=== PATIENT | male | born 1950 | race Asian ===

== ENCOUNTER 2019-05-13 04:09 | Inpatient (IN) | payer OTHER ==
[~2019-05-13] VITALS: Ht 167.6 cm; Wt 74.4 kg
[~2019-05-13 04:09] MED LIST: CLINDAMYCI300 MG/50 IV; LEVAQUIN750 MG/150 IV; LIPI10 PO; METOPROLOL TART25 M1 PO; MIRTAZAPINE15 M2 PO; PHOSLO667 MG PO; PRO10I SQ; STOOL SOFTENER100 MG PO
[2019-05-13 04:12] VITALS: Ht 167.6 cm; Wt 74.4 kg
--- NOTE | 2019-05-13 04:12 | NUR ---
PT PRESENTED TO ED VIA [facility] FOR C/O OF SOB. PER FRESH FOODS TECHNICIAN PT WALKED INTO THE LOBBY OF HIS DIALYSIS CLINICAL FEELING SOB AND CALLED 911. PT NOTED WITH LABORED BREATHING AND USE OF ACCESSORY MUSCLES. BILATERAL WHEEZE NOTED TO LUNGS UPON ASCULTATION. PT STATES DRY COUGH X 3 WEEKS. PT REPORTS HX OF COPD. UPON ARRIVAL TO ED PT ON ALBUTEROL 2.5 MG AND ATROVENT 0.5 MG BREATHING TREATMENT AT 8 L VIA MASK AND NOTED SATING AT 97%. WHEN PT PLACED ON FULL CM AND 02 MONITOR PT NOTED SATING AT 91%. PT NOTED TACHYCARDIC ON CM WITH PACED SPIKES. MSE COMPLETED BY MD RODGERS. PT AWAKE AND ALERT AND ABLE TO ANSWER QUESTIONS IN 2-3 WORD SENTENCES. PT REPORTS GETTING DIALYSIS MONDAY, MONDAY, MONDAY, AND DENIES MISSING ANY APPOINTMENTS OTHER THAN TODAY. WILL CONTINUE TO MONITOR.
--- NOTE | 2019-05-13 04:15 | NUR ---
PT MEETS SIRS CRITERIA WITH ELEVATED RESP RATE AND ELEVATED HR. MD RODGERS MADE AWARE.
--- NOTE | 2019-05-13 04:20 | NUR ---
BREATHING TREATMENT IN PROGRESS BY RT
--- NOTE | 2019-05-13 04:23 | NUR ---
XRAY COMPLETED IN ROOM ORTHO AT THIS TIME.
--- NOTE | 2019-05-13 04:30 | NUR ---
PT PLACED ON 3 L VIA NC AFTER BREATHING TREATMENT BY RT MADISON AND NOTED SATING BETWEEN 88-91%. PT REMAINS ON FULL CM AND 02 MONITOR. WILL CONTINUE TO MONITOR.
[2019-05-13 04:44] LABS: PLATELET COUNT 250 x10^3mcL (130-400)
--- NOTE | 2019-05-13 04:50 | NUR ---
PT NOTED COUGHING BUT WITH LESS LABORED BREATHING. PT ABLE TO ANSWER QUESTIONS IN 3-4 WORD SENTENCES. FULL CM AND [address] PT REMAINS ON 3 L VIA NC AT SATING AT 92-94% AFTER SECOND BREATHING TREATMENT.
[2019-05-13 04:54] LABS: RED CELL DISTRIBUTION WIDTH 14.9 % (11.5-14.5)
[2019-05-13 04:59] LABS: CHLORIDE SERUM 99 mmol/L (98-107); POTASSIUM SERUM 5.5 mmol/L (3.5-5.1); SODIUM SERUM 143 mmol/L (136-145)
[2019-05-13 05:00] LABS: CARBON DIOXIDE 24.1 mmol/L (21-32); GLUCOSE SERUM 197 mg/dL (74-106)
[2019-05-13 05:04] LABS: CALCIUM 8.3 mg/dL (8.5-10.1); TOTAL PROTEIN, SERUM 7.1 g/dL (6.4-8.2)
[2019-05-13 05:05] LABS: ALKALINE PHOSPHATASE 169 U/L (46-116); ALT/SGPT 38 U/L (16-63); AST/SGOT 28 U/L (15-37); BILIRUBIN TOTAL 0.78 mg/dL (0.20-1.00)
[2019-05-13 05:06] LABS: CREATININE SERUM 14.8 mg/dL (0.7-1.3)
[2019-05-13 05:12] LABS: BAND NEUTROPHIL 2 % (0-10); MONOCYTE 5 % (0-7); SEGMENTED NEUTROPHILS 58 % (37-75)
[2019-05-13 05:13] LABS: PLATELET MORPHOLOGY PLATELETS NORMAL; rbc morphology (normal/abnorm) NORMAL (NORMAL)
--- NOTE | 2019-05-13 05:39 | NUR ---
PT REMAINS ON FULL CM AND O2 MONITOR. PT REMAINS ON 3L VIA NC AND NOTED SATING AT 92-94% AFTER SECOND BREATHING TREATMENT. PT STILL NOTED COUGHING WITH APPARENT SOB BUT APPEARS LESS ACCESSORY MUSCLE USE AND ABLE TO ANSWER QUESTIONS WITH 3-4 WORD SENTENCES. AT BEDSIDE. WILL CONTINUE TO MONITOR.
[2019-05-13] MEDS ORDERED: ASPIR 8181 MG PO (06:00)
[2019-05-13] MEDS ORDERED: SENSIPAR30 M1 PO (06:00)
[2019-05-13] MEDS ORDERED: NORCO1 TA2 PO (06:00)
[2019-05-13] MEDS ORDERED: CARVEDILOL ER40 MG PO (06:01)
[2019-05-13] MEDS ORDERED: MITIGARE0.6 MG PO (06:03)
[2019-05-13] MEDS ORDERED: RENA-VITE RX1 TAB PO (06:03)
[2019-05-13] MEDS ORDERED: PACERONE200 MG PO (06:03)
[2019-05-13] MEDS ORDERED: PLAVIX75 M1 PO (06:03)
[2019-05-13] MEDS ORDERED: LANTI SQ (06:03)
[2019-05-13] MEDS ORDERED: COZAAR25 M1 PO (06:04)
[2019-05-13] MEDS ORDERED: ATHENOL325 MG PO (06:05)
[2019-05-13] MEDS ORDERED: DEXTROSE 50% IV (06:06)
[2019-05-13] MEDS ORDERED: CLONIDINE HYDR0.1 M1 PO (06:06)
[2019-05-13] MEDS ORDERED: [UNRECOGNIZED DRUG - OTHER] IV (06:06)
--- NOTE | 2019-05-13 06:30 | NUR ---
PT NOTED RESTING ON GURNEY WITH EYES CLOSED, EASILY AROUSABLE. FULL CM AND [address] IV INTACT AND FLUSHES WITH NO COMPLICATIONS. IV FLUID RUNNING AT ORDERED RATE. PT AT BEDSIDE. WILL CONTINUE TO MONITOR.
--- NOTE | 2019-05-13 07:14 | NUR ---
ATTEMPTED TO GIVE REPORT TO NELLIE YU, UNABLE TO GIVE REPORT AT THIS TIME. RICHARDSON LE RN MADE AWARE.
--- NOTE | 2019-05-13 07:31 | NUR ---
REPORT GIVEN TO NELLIE YU
--- NOTE | 2019-05-13 07:40 | NUR ---
RECEIVED PT FROM ER WITH DIAGNOSIS OF RESP FAILURE, FLUID OVERLOAD HYPERKALEMIA (5.5). ALERT AND ORIENTED. CONGESTED LUNG SOUNDS ON NC 3L. SOB X 1 DAY. HX HD M W FR., COPD,CABG,CARDAIC STENTS. PACEMAKER, DIFIBRILATOR, DM. GOUT.ALERT AND ORIENTED X 4 ALLERGIES TO MORPHINE AND PCN. BASELINE INDEPENDENT W ADL'S. NO ASSISTIVE DEVICES AT HOME. FREQUENT PRODUCTIVE COUGH, YELLOWISH PHLEGM. ORIENTED TO ROOM AND DEVICES. FAUSTO AT BEDSIDE.
[2019-05-13 08:12] VITALS: BP 119/58
[2019-05-13] MEDS ORDERED: REN800 PO (10:13)
[2019-05-13] MEDS ORDERED: NASAL MIST126 ML (10:20)
[2019-05-13] MEDS ORDERED: COLCRYS0.6 M2 PO (10:20)
[2019-05-13 10:26] VITALS: BP 122/61
[2019-05-13 11:44] LABS: CARBON DIOXIDE 22.8 mmol/L (21-32); CHLORIDE SERUM 99 mmol/L (98-107); GLUCOSE SERUM 198 mg/dL (74-106); POTASSIUM SERUM 5.3 mmol/L (3.5-5.1); SODIUM SERUM 142 mmol/L (136-145)
[2019-05-13 11:45] LABS: CREATININE SERUM 15.2 mg/dL (0.7-1.3); TOTAL PROTEIN, SERUM 7.6 g/dL (6.4-8.2)
[2019-05-13 11:46] LABS: ALBUMIN 3.1 g/dL (3.4-5.0); ALKALINE PHOSPHATASE 163 U/L (46-116); ALT/SGPT 38 U/L (16-63); AST/SGOT 30 U/L (15-37); BILIRUBIN TOTAL 0.71 mg/dL (0.20-1.00); CALCIUM 8.3 mg/dL (8.5-10.1)
[2019-05-13 12:33] VITALS: BP 122/58
--- NOTE | 2019-05-13 12:48 | NUR ---
HD RN HERE PERFORMING HEMODIALYSIS. HAS BEEN HERE SINCE APPROX 1030.
--- NOTE | 2019-05-13 13:31 | NUR ---
DIALYSIS COMPLETED. 3600 ML OUT. TOLERATED WELL. SITTING UP FOR LUNCH.
[2019-05-13 14:24] LABS: CARBON DIOXIDE 28.6 mmol/L (21-32); POTASSIUM SERUM 4.2 mmol/L (3.5-5.1)
[2019-05-13 14:26] LABS: CREATININE SERUM 8.6 mg/dL (0.7-1.3); TOTAL PROTEIN, SERUM 8.7 g/dL (6.4-8.2)
[2019-05-13 14:27] LABS: ALBUMIN 3.3 g/dL (3.4-5.0); BILIRUBIN TOTAL 0.97 mg/dL (0.20-1.00); CALCIUM 9.2 mg/dL (8.5-10.1)
[2019-05-13 16:40] VITALS: BP 123/53
--- NOTE | 2019-05-13 19:35 | NUR ---
RECEIVED PT FROM DAY SHIFT RN. PT AAOX4 DENIES JONES/DIZZINESS. TELE #2 SR 100% PACED. PT DENIES CHEST PAIN/PRESSURE. BREATHING EVEN AND UNLABORED ON NC 3L/MIN NO SOB NOTED. IV LH PATENT, SL. PT ON FL RESTRICTIONS. HD DONE TODAY. AV SHUNT TO SHERRY. NO ACUTE DISTRESS NOTED. FAMILY AT BEDSIDE. CALL BUTTON WITHIN REACH. SAFETY PRECAUTIONS IN PLACE. WILL CONTINUE TO MONITOR.
--- NOTE | 2019-05-13 19:41 | NUR ---
RESTING QUIETLY AND COMFORTABLY WITH AT BEDSIDE. NC 3L. RT PROTOCOL. GOOD APPETITE. URINE COLLECTED FOR UA AND URC. NO C/O PAIN. VSS. ENDORSED TO FERNANDA YU.
[2019-05-13 20:12] LABS: UA SPECIFIC GRAVITY 1.015 (1.005-1.035); microscopic required? YES; urine erythrocyte TRACE (NEGATIVE)
[2019-05-13 20:29] LABS: AMPHETAMINE QUAL UR NONE DETECTED (See below)
[2019-05-13 22:03] VITALS: BP 131/57
--- NOTE | 2019-05-14 01:12 | NUR ---
PT BREATHING EVEN AND UNLABORED. NO RESP DISTRESS NOTED. NO ACUTE DISTRESS. CALL BUTTON WITHIN REACH. SAFETY PRECAUTIONS IN PLACE. WILL CONTINUE TO MONITOR.
--- NOTE | 2019-05-14 05:04 | NUR ---
PT SLEPT MOST OF THE NIGHT WITH NO ACUTE DISTRESS. BREATHING EVEN AND UNLABORED ON NC 3L/MIN. NO SOB NOTED. IV PATENT, SL. PT ABLE TO TURN AND REPOSITONED NEEDED. MEDICATED PER EMAR. CALL BUTTON WITHIN REACH. SAFETY PRECAUTIONS IN PLACE. WILL CONTINUE TO MONITOR AND ENDORSE CARE TO DAY SHIFT RN.
[2019-05-14 05:52] VITALS: BP 120/56
[2019-05-14 06:56] LABS: PLATELET COUNT 157 x10^3mcL (130-400); RED CELL DISTRIBUTION WIDTH 14.4 % (11.5-14.5)
[2019-05-14 07:10] LABS: CALCIUM 8.6 mg/dL (8.5-10.1); CARBON DIOXIDE 27.2 mmol/L (21-32); CREATININE SERUM 11.5 mg/dL (0.7-1.3); POTASSIUM SERUM 4.9 mmol/L (3.5-5.1)
[2019-05-14 07:14] LABS: CHOLESTEROL/HDL RATIO 2.8
--- NOTE | 2019-05-14 07:25 | NUR ---
SEEN AOX4, NOT IN DISTRESS, TELE 2 SR PACED, PALPABLE PULSES, NO EDEMA, CTA ON BLF, 3LPM VIA NC, + BS, LAST BM 05/12/19, OLIGURIC, SHERRY SHUNT THRILL , GENERALIZED WEAKNESS, SKIN DRY AND INTACT, NO PAIN AT THIS TIME, IV INTACT AND PATENT, SL, TO LH. NO REDNESS OR INFILTRATION. CALL LIGHT WITHIN REACH. BED AT LOWEST POSITION.
--- NOTE | 2019-05-14 07:29 | NUR ---
PT RESTING. NO ACUTE DISTRESS NOTED. ENDORSED CARE TO DAY SHIFT RN, ALL QUESTIONS ADDRESSED.
[2019-05-14 08:52] VITALS: BP 120/51
--- NOTE | 2019-05-14 09:00 | NUR ---
SPOKE WITH WYATT SEWELL REGARDING PATIENT'S BUN CREATININE RESULT DESPITE HD TREATMENT YESTERDAY. PER DONATO , PATIENT WILL STILL BE HERE FOR TREATMENT A DAY OR 2.
--- NOTE | 2019-05-14 09:29 | NUR ---
BP 120/51. HR 90. PO MEDICATIONS GIVEN. CATAPRESS ON HOLD.
[2019-05-14 11:03] LABS: BAND NEUTROPHIL 3 % (0-10); BASOPHIL 0 % (0-2); MONOCYTE 1 % (0-7); SEGMENTED NEUTROPHILS 94 % (37-75); rbc morphology (normal/abnorm) ABNORMAL (NORMAL)
[2019-05-14 11:04] LABS: PLATELET MORPHOLOGY PLATELETS DECREASED
--- NOTE | 2019-05-14 11:50 | NUR ---
ACCUCHECK DONE MUSA ESPINOZAG 19O. REG 3 U SQ GIVEN.
--- NOTE | 2019-05-14 12:54 | NUR ---
SPOKE WITH TANKAGE SUPERVISOR REGARDING PATIENT'S DISCHARGE STATUS. PATIENT'S RECEIVED CALL FROM [facility] SENIOR SSIS DEVELOPER ROSELLE TO CHECK ON DISCHARGE STATUS OF PATIENT FOR TOMORROW. IF PATIENT STILL NOT READY FOR DISCHARGE, PATIENT WILL FOREGO RESERVATION OF HD AT [facility]AR [place]. PER TANKAGE SUPERVISOR, SHE WILL TALK TO GIGI WETZEL REGARDING STATUS OF PATIENT.
--- NOTE | 2019-05-14 13:19 | NUR ---
WYATT SEWELL MADE AWAER OF PHOSPHORUS 7.0 RESULTS AND PATIENT'S MCV/MCH , HYPERSEGMENTED PMN RESULT. PER DONATO, NEPHRO WILL HANDLE PHOSPHORUS RESULT AND PATIENT'S CBC RESULTS ARE FROM HIS CHRONIC CONDITION.
[2019-05-14 13:20] VITALS: BP 134/56
--- NOTE | 2019-05-14 13:30 | NUR ---
SOLUMEDROL IVP GIVEN AND FLUSHED WITH NS.
--- NOTE | 2019-05-14 15:21 | NUR ---
PHYSICAL THERAPY DAILY NOTES CO-SIGN All documentation done by the Dressage Instructor for 05/14/19 has been reviewed. I agree with the documentation. Reviewed/Co-Signed by: Ana M Beckwith PT Documentation Done by:VALENTINA MANZO SPT
--- NOTE | 2019-05-14 15:24 | NUR ---
SYLWIA KING MADE AWARE FOR HD TOMORROW 05/15/19.
[2019-05-14 16:27] VITALS: BP 144/58
--- NOTE | 2019-05-14 16:52 | NUR ---
ACCUCHECK DONE WITH CBG 196. REG 3 UNITS GIVEN. PHOSLO PO GIVEN.
--- NOTE | 2019-05-14 19:20 | NUR ---
RECEIVED REPORT FROM ARACELI YU. PT AAOX4 AND DENIES JONES OR DIZZINESS AT THIS TIME. PT IS [place]. PT IS MED-SURG AND DENIES CHEST PAIN OR PRESSURE AT THIS TIME. PT HAS PACEMAKER. PT PULSES PALPABLE AND CAP REFILL <3 SEC. PT LUNG SOUNDS CONGESTED ON 3LPM NC. PT BREATHING EVEN AND UNLABORED. PT DENIES SOB OR RESPRIRATORY DISTRESS AT THIS TIME. PT ABD SOFT AND ROUND. PT BOWEL SOUNDS ACTIVE X4. PT DENIES N/V/D/C AT THIS TIME. PT VOIDS FREELY. PT IS OLIGURIC. PT IS ON FLUID RESTRICTION OF 1500 ML DAILY. PT HAS HD M/W/F. PT LAST HD 05/13/19, OUTPUT 3.6L. PT HAS SHERRY SHUNT, BRUIT/THRILL PRESENT. PT HAS GENERALIZED WEAKNESS. PT SKIN INTACT. PT IV PATENT, INTACT, AND SL AT THIS TIME. CALL LIGHT WITHIN REACH. BED IN LOWEST POSITION. SIDE RAILS X2 UP. WILL CONTINUE TO MONITOR.
[2019-05-14 20:46] VITALS: BP 124/59
--- NOTE | 2019-05-15 | NUR ---
PT SLEEPING AT THIS TIME. PT BREATHING EVEN AND UNLABORED. NO ACUTE DISTRESS NOTED. CALL LIGHT WITHIN REACH. BED IN LOWEST POSITION. SIDE RAILS X2 UP. WILL CONTINUE TO MONITOR.
--- NOTE | 2019-05-15 04:15 | NUR ---
PT SLEEPING. PT BREATHING EVEN AND UNLABORED. NO ACUTE DISTRESS NOTED. CALL LIGHT WITHIN REACH. BED IN LOWEST POSITION. SIDE RAILS X2 UP. WILL CONTINUE TO MONITOR.
--- NOTE | 2019-05-15 04:48 | NUR ---
PT SLEPT THROUGHOUT THE NIGHT. PT COMPLIED WITH NURSING CARE THROUGHOUT THE SHIFT. NO ACUTE DISTRESS NOTED DURING THE SHIFT. COMFORT AND SAFETY MEASURES MAINTAINED. ALL QUESTIONS AND CONCERNS ADDRESSED. WILL ENDORSE CARE TO DAY SHIFT NURSE. WILL CONTINUE TO MONITOR.
[2019-05-15 06:09] VITALS: BP 106/43
[2019-05-15 06:39] VITALS: BP 145/59
[2019-05-15 06:42] LABS: PLATELET COUNT 149 x10^3mcL (130-400); RED CELL DISTRIBUTION WIDTH 14.3 % (11.5-14.5)
[2019-05-15 06:57] LABS: BASOPHIL % 0 % (0-2)
[2019-05-15 07:00] LABS: CARBON DIOXIDE 24.5 mmol/L (21-32); POTASSIUM SERUM 5.3 mmol/L (3.5-5.1)
[2019-05-15 07:04] LABS: CREATININE SERUM 14.1 mg/dL (0.7-1.3)
--- NOTE | 2019-05-15 07:31 | NUR ---
GAVE REPORT TO KATELIN YU. ALL QUESTIONS AND CONCERNS ADDRESSED.
--- NOTE | 2019-05-15 07:40 | NUR ---
RECEIVED PT FROM PAIN MANAGEMENT NURSE, STABLE. PT SITTING UP IN THE BED AND EATING BREAKFAST, FOUND ON RA AND SATTING 96%, NO SOB NOTED. SAFTEY PRECAUTIONS ARE IN PLACE. WILL MONITOR.
--- NOTE | 2019-05-15 08:14 | NUR ---
ECHOCARDIOGRAM PENDING-HAD ECHO 3 MONTHS AGO-DR LAROSE'S OFFICE
--- NOTE | 2019-05-15 08:40 | NUR ---
WYATT SEWELL AWARE ABOUT K=5.3, NO NEW ORDER RECEIVED. HD STARTED.
--- NOTE | 2019-05-15 09:00 | NUR ---
HD NURSE CAME AND STARTED HD, CONSENT WAS SIGNED PREVIOUSLY AND IN THE CHART. V/S STABLE. DENIES ANY PAIN. WILL MONITOR.
[2019-05-15 09:12] VITALS: BP 140/87
--- NOTE | 2019-05-15 11:45 | NUR ---
HD FINISHED WITH 2L. PT IS STABLE, V/S STABLE. BP 109/59. DENIES ANY PAIN. NO SOB NOTED. WILL MONITOR.
[2019-05-15 13:40] VITALS: BP 129/53
--- NOTE | 2019-05-15 16:00 | NUR ---
PT RESTING IN BED COMFORTABLY, DENIES ANY PAIN. NO SOB.
[2019-05-15 17:39] VITALS: BP 120/47
--- NOTE | 2019-05-15 19:00 | NUR ---
PT RESTING IN BED COMFORTABLY, DENIES ANY PAIN, NO SOB NOTED. GAVE REPORT TO MONUMENT MASON NURSE.
--- NOTE | 2019-05-15 19:30 | NUR ---
RECIEVED PT RESTING IN BED, NO ACUTE DISTRESS NOTED. PT AOX4, DENIES JONES/DIZZINESS. PT [place] BILAT YET ABLE TO MAKE NEEDS KNOWN AND UNDERSTAND STAFF. MEDSURG PT, WITH PACEMAKER. JUAQUIN CP. PULSES PALPABLE BILAT, (+) NUMBNESS IN BILAT FEET. RESP EVEN AND UNLABORED ON RA, DENIES SOB AT THIS TIME, PT REPORTS NEEDING O2 AT NIGHT FOR COMFORT. INFORMED PT WHEN HE IS READY FOR BED, O2 WILL BE MADE AVAILABLE BUT TO ONLY APPLY IF HE NEEDS IT. PT VERBALIZES UNDERSTANDING. ABD SOFT, ROUND, DENIES ABD PAIN. PT HD, LAST HD= 05/15 W/ 2L OUT. REPORTS FEELING OK AFTER HD. SHERRY AV SHUNT REMAIN COVERED WITH DSG, CDI. PT REPORTS USING A CANE AT BASELINE, WILL BRING IN LATER. SKIN INTACT. PT DENIES PAIN AT THIS TIME. IV SITE TO THE LT HAND, SALINE LOCKED. PT ON SOLUMEDROL AND LEVAQUIN. ALL COMFORT AND SAFETY MEASURES PROVIDED FOR, CALL LIGHT WITHIN REACH, BED IN LOWEST POSITION, WILL CONTINUE TO MONITOR.
[2019-05-15 20:58] VITALS: BP 114/52
--- NOTE | 2019-05-16 05:10 | NUR ---
PT RESTED IN INTERVALS DURING SHIFT, NO ACUTE CHANGES OCCURRING OVERNIGHT. PT DENIES SOB DURING SHIFT, PT APPLIED O2 PRIOR TO GOING TO SLEEP. IV SITE REMAINS PATENT TO LT HAND, NO REDNESS, SWELLING OR PAIN NOTED. DSG TO SHERRY SHUNT REMAINS CDI. ALL COMFORT AND SAFETY MEASURES PROVIDED FOR, CALL LIGHT WITHIN REACH, BED IN LOWEST POSITION, WILL CONTINUE TO MONITOR.
[2019-05-16 05:23] VITALS: BP 113/48
[2019-05-16 06:30] LABS: PLATELET COUNT 171 x10^3mcL (130-400); RED CELL DISTRIBUTION WIDTH 14.4 % (11.5-14.5)
[2019-05-16 06:47] LABS: CALCIUM 9.6 mg/dL (8.5-10.1)
[2019-05-16 06:50] LABS: BASOPHIL % 0 % (0-2); POTASSIUM SERUM 5.8 mmol/L (3.5-5.1)
[2019-05-16 06:51] LABS: CREATININE SERUM 10.3 mg/dL (0.7-1.3)
--- NOTE | 2019-05-16 07:20 | NUR ---
RECEIVED PT SITTING UP IN THE CHAIR, EATING BREAKFAST. ASSESSED AND DOCUMENTED. DENIES ANY PAIN. STABLE. SAFTEY PRECAUTIONS ARE IN PLACE. WILL MONITOR.
--- NOTE | 2019-05-16 08:00 | NUR ---
INFORMED MECHANICAL SHOP LABORER DONATO ABOUT K=5.8, CREAT=10.3. NO NEW ORDER RECEIVED THIS TIME.
[2019-05-16 08:48] VITALS: BP 148/66
[2019-05-16 12:20] VITALS: BP 127/53
--- NOTE | 2019-05-16 12:45 | NUR ---
PT SITTING UP IN THE BED AND EATING LUNCH. PT IS STABLE. DENIES ANY PAIN.
--- NOTE | 2019-05-16 13:30 | NUR ---
HD NURSE CAME AND STARTED HD, V/S STABLE. PT TOLERATING WELL.
--- NOTE | 2019-05-16 14:05 | NUR ---
PHYSICAL THERAPY DAILY NOTES CO-SIGN All documentation done by the Criminal Investigator for 05/16/19 has been reviewed. I agree with the documentation. Reviewed/Co-Signed by: Ana M Beckwith PT Documentation Done by:MAGDALENE DANIEL SHELTERED WORKSHOP EXECUTIVE DIRECTOR
--- NOTE | 2019-05-16 14:31 | NUR ---
DR PIERCE NOTIFIED ABOUT AM LABS: K-5.8, BUN/CREAT- 81/10.3. PER DR PIERCE PATIENT TO HAVE HEMODYALISIS TODAY. HD NURSE NOTIFIED. ATTENDING NURSE KATELIN MADE AWARE.
[2019-05-16 16:59] VITALS: BP 104/40
--- NOTE | 2019-05-16 18:50 | NUR ---
HD FINISHED WITH 1L OUT. V/S STABLE. DENIES ANY PAIN. NO SOB NOTED.
--- NOTE | 2019-05-16 19:10 | NUR ---
PT RESTING IN BED COMFORTABLY, DENIES ANY PAIN. STABLE. GAVE REPORT TO EX ASSISTANT/PROGRAM DIRECTOR NURSE.
--- NOTE | 2019-05-16 19:30 | NUR ---
RECIEVED PT RESTING IN BED, NO ACUTE DISTRESS NOTED. PT AOX4, DENIES JONES/DIZZINESS. PT [place] BILAT YET ABLE TO MAKE NEEDS KNOWN AND UNDERSTAND STAFF. MEDSURG PT, WITH PACEMAKER. DENIES CP. PULSES PALPABLE BILAT, (+) NUMBNESS IN BILAT FEET. RESP EVEN AND UNLABORED ON RA, DENIES SOB AT THIS TIME, PT WITH PRODUCTIVE COUGH S/P BREATHING TX. ENCOURAGED PT TO COUGH UP SECRETIONS IF ABLE TO, PT VERBALIZES UNDERSTANDING. ABD SOFT, ROUND, DENIES ABD PAIN. PT HD, LAST HD= 05/16 W/ 1 L OUT. REPORTS FEELING OK AFTER HD. SHERRY AV SHUNT REMAIN COVERED WITH DSG, CDI. PT REPORTS USING A CANE AT BASELINE, DAUGHTER AT BEDSIDE. SKIN INTACT. PT DENIES PAIN AT THIS TIME. IV SITE TO THE LT HAND, SALINE LOCKED. PT ON SOLUMEDROL AND LEVAQUIN. ALL COMFORT AND SAFETY MEASURES PROVIDED FOR, CALL LIGHT WITHIN REACH, BED IN LOWEST POSITION, WILL CONTINUE TO MONITOR.
--- NOTE | 2019-05-16 19:35 | NUR ---
DR. PIERCE AT BEDSIDE DISCUSSING PLAN OF CARE. WILL WAIT FOR ANY NEW ORDERS.
[2019-05-16 21:10] VITALS: BP 136/60
--- NOTE | 2019-05-17 05:00 | NUR ---
PT RESTED IN INTERVALS DURING SHIFT, NO ACUTE CHANGES OCCURRING OVERNIGHT. PT DENIES SOB DURING SHIFT, PT DID NOT NEED TO USE HIS OXYGEN THIS SHIFT. DSG TO SHERRY SHUNT REMAINS CDI. ALL COMFORT AND SAFETY MEASURES PROVIDED FOR, CALL LIGHT WITHIN REACH, BED IN LOWEST POSITION, WILL CONTINUE TO MONITOR.
[2019-05-17 05:51] VITALS: BP 139/57
[2019-05-17 06:32] LABS: PLATELET COUNT 134 x10^3mcL (130-400); RED CELL DISTRIBUTION WIDTH 14.2 % (11.5-14.5)
[2019-05-17 06:41] LABS: BASOPHIL % 0 % (0-2)
--- NOTE | 2019-05-17 06:53 | NUR ---
INSERTED NEW IV TO THE LEFT WRIST, 24G PT TOLERATED WELL. REMOVED OLD IV FROM THE LEFT HAND, CATH INTACT. PT TOELRATED WELL.
[2019-05-17 07:12] LABS: CARBON DIOXIDE 30.7 mmol/L (21-32); POTASSIUM SERUM 5.1 mmol/L (3.5-5.1)
[2019-05-17 07:16] LABS: CALCIUM 9.4 mg/dL (8.5-10.1)
--- NOTE | 2019-05-17 07:30 | NUR ---
RECEIVED HAND OFF REPORT FROM NIGHT NURSEHILARIA. PATIENT RESTING IN BED AT THIS TIME. WAS PREVIOUSLY VISUALIZED GETTING OUT OF BED UNDER OWN POWER WITH NO ASSISTANCE NEEDED. REPORT OF HD YESTERDAY WITH 1L OUT. PATIENT IN A/O X4, BREATHIGN IS REGULAR AND UNLABORED, SLIGHT COUGH AT TIMES. DENIES ABD PAIN, IV ACCESS TO LEFT WRIST FLUSHING WELL. ANURIC DUE TO ESRD, HD SHUNT TO RIGHT UPPER ARM. CALL LIGHT WTIHIN REACH, WILL CONTINEUT OT MONITOR
--- NOTE | 2019-05-17 07:40 | NUR ---
ENDORSED ALL CARE TO DAYSHIFT NURSE, ALL QUESITONS AND CONCERNS ADDRESSED, CALL LIGTH WITHIN REACH, BED IN LOWEST POSITION.
[2019-05-17 08:16] VITALS: BP 144/52
--- NOTE | 2019-05-17 08:41 | NUR ---
PATIENT SITTING UP IN BED WITH DAUGHTER AT BEDSIDE. DAUGHTER IS HD NURSE AND VERY KNOWLEGEABLE ABOUT PATIETN AND DIALYSIS PROCEDURE. DAUGHTER REQUESTING TO HOLD BLOOD PRESSURE MEDICATIONS, NOT WANTING PATIENT TO TAKENA ND THEN HAVE LOW BLOOD PRESSURE DURING HD. PER DIALYSIS NURSE HE IS GOING TO CHECK IN THE ICU IF PATIENT ARE IN NEED OF HD FIRST. ADMINSTERED MEDICATION PER MAR. UPDATED PATIENT AND FAMILY ON LAB RESULTS AND PLAN OF CARE
--- NOTE | 2019-05-17 09:56 | NUR ---
HD NURSE IS NOT ABLE TO DO HD FIRST THING ON THIS PATIENT DUE TO PATIENTS IN THE ICU SO PATIENT AGGREED TO TAKE BLOOD PRESSURE MEDICATIONS. PATIENT RESTING AT THIS TIME. CALL LIGHT WITHIN REACH
[2019-05-17] MEDS ORDERED: LEVAQUIN500 M1 PO (11:16)
[2019-05-17 12:07] VITALS: BP 132/45
--- NOTE | 2019-05-17 12:21 | NUR ---
1. Recommend Renal, CCHO diet. Discussed with WYATT Watters.
--- NOTE | 2019-05-17 12:21 | NUR ---
Initial Nutrition Assessment: 217/A JONATHAN GUILLEN MR Dx: SOB, respiratory failure, PNA PMHx: ESRD (MWF), COPD, DM, HTN, CAPG, and Pacemaker PSHx: CABG Labs: BG 210H, BUN 69H, CREAT 8.0H Meds: Apresoline, catapres, Colace, D 50%, Humulin, Lipitor, nephron-chastity, phoslo, zofran Diet: Renal, cardiac, mechanically soft chopped PO intake since admission: (05/17) breakfast 90%, (05/16) 75% all meals, (05/15) dinner, lunch 75%, breakfast 100% Ht: 167.64 cm (66") Wt: 74 kg (163#) BMI: 26.5 kg/m2 Bed scale: 163# IBW: 142# (65 kg) %IBW: 114 UBW: unable to access Age: 68/M Food Allergies: NKFA Skin: intact [place]: 19 Edema: none GI: Last BM: 05/14 Per H&P, Pt is a 68 years old male with PMH of ESRD (MWF), COPD, DM, HTN, CABG, Angiography with stents and Pacemaker who brought from home to ED due to SOB for [address] Note (05/17): Patient was sleeping. Per RN Torin, pt has good PO and does not have any N/V/D/C at this time. Per progress note (05/16), Patient is scheduled for HD today will discuss with Nephro if ok to d/c tomorrow. Patient is ambulatory and shows no s/s of distress Problem with: N/V/D/C: none Problems with: Chewing: Swallowing: none Current appetite: good per RN Recent wt change: unable to access %wt change: n/a Vitamin/Supplement use: unable to access Special diet at home: unable to access Physical activity: unable to access Nutrition education given: none at this time Food-drug interactions: none Education given: n/a Estimated Nutritional Needs Based on ideal body weight (65 kg) Energy: 0333-6411 kcal/day (30-35 kcal/kg for HD needs) Protein: 78-97 g/day (1.2-1.5 g/kg for HD needs) Fluid: 1L + HD output Nutrition Diagnosis: 1. Increased nutrient needs related to increased metabolic demands as evidenced by HD. Intervention 1. Recommend Renal, CCHO diet. Discussed with OVER THE HORIZON TARGETING SUPERVISOR Duong. Monitor/Evaluate Goal: PO intake at least 75% of estimated needs Monitor: PO intake, Labs, GI function F/U in 3-5 days as moderate risk
--- NOTE | 2019-05-17 12:29 | NUR ---
Stanislaw.T. NOTES UNABLE TO SEE PATIENT AT THIS TIME, CURRENTLY IN DIALYSIS TREATMENT.
--- NOTE | 2019-05-17 12:37 | NUR ---
PATIENT RECEIVING DIALYSIS AT THIS TIME. DONTAO SCHNEIDER PUT IN ORDER FOR DISCHARGE AFTER HD FINISHES. TO CALL SUKH TORRES TO INFORM
--- NOTE | 2019-05-17 12:41 | NUR ---
CALLED AND SPOKE WITH PATIENT'S SON IN LAW TO INFORM OF PENDIND DISHARGE AROUND 3-330 PM AFTER HD TREATMENT FINISHES
--- NOTE | 2019-05-17 14:06 | NUR ---
PHYSICAL THERAPY DAILY NOTES CO-SIGN All documentation done by the Trimmer Helper for 05/17/19 has been reviewed. I agree with the documentation. Reviewed/Co-Signed by: Ana M Beckwith PT Documentation Done by:FILI MORRISON PTA
[2019-05-17] MEDS ORDERED: PREDNISONE5 MG PO (15:11)
[2019-05-17] MEDS ORDERED: PREDNISONE10 MG PO (15:11)
[2019-05-17] MEDS ORDERED: PRE20 PO (15:11)
[2019-05-17 15:34] VITALS: BP 146/56
--- NOTE | 2019-05-17 15:35 | NUR ---
PATIENT FINISHED WITH DIALYSIS TREATMENT. 1.5L OUT. BLEEDING RIGHT SHERRY SHUNT AFTER TREATMENT FINISHED. 10EBL. DRESSING TO RIGHT UPPER ARM REINFORCED. PREPARING PATIENT FOR DISCHARGE
[2019-05-17 15:37] VITALS: BP 146/56
--- NOTE | 2019-05-17 16:39 | NUR ---
PATIENT EDUCATED FOR DISCHARGE. BLEEDING CONTROLLED, DRESSING CHNAGED BY HD NURSE. PATIENT MADE AWARE OF PRESCRIPTIONS AND CORRECT WAYS TO TAKE MEDICATIONS. PREFERED PHARMACY WAS NOT UPDATED PER ADMITTING NURSE. SO MEDICATIONS WERE SENT ELECTRONICALLY TO DIFERENT PHARMACY. MADE PATIENT AND DAUGHTER AWARE, INSTRUCTED TO TRY AND GET PRESCRIPTIONS FILLED, IF UNABLE TO COME IN MORNING FOR PHYSICAL PRESCRIPTION FROM DONATO. IV REMOVED FROM LEFT HAND, CATH INTACT, BLEEDING CONTROLLED. PATIENT DRESSED AND WAS ESCORTED FROM UNIT BY TONJA MCADAMS, WITH ALL BELINGINGS
== END 2019-05-17 16:38 | disposition home or self-care (01) | DRG 871 ==
LOC: ED 04:09 → DU 05:44 → MU 05:44 → DU 07:43 → MU 05-14 21:48
PROVIDERS: Emergency Medicine; Internal Medicine; Student in an Organized Health Care Education/Training Program; ADMIT Internal Medicine
DX: A41.9 Sepsis, unspecified organism (principal); J18.9 Pneumonia, unspecified organism; N18.6 End stage renal disease; J44.1 Chronic obstructive pulmonary disease with (acute) exacerbation; I12.0 Hypertensive chronic kidney disease with stage 5 chronic kidney disease or end stage renal disease; E44.1 Mild protein-calorie malnutrition; E11.22 Type 2 diabetes mellitus with diabetic chronic kidney disease; D63.1 Anemia in chronic kidney disease; E87.5 Hyperkalemia; Z99.2 Dependence on renal dialysis; Z79.4 Long term (current) use of insulin; Z79.82 Long term (current) use of aspirin; Z68.25 Body mass index [BMI] 25.0-25.9, adult; Z95.1 Presence of aortocoronary bypass graft; Z87.891 Personal history of nicotine dependence; Z79.84 Long term (current) use of oral hypoglycemic drugs; Z95.5 Presence of coronary angioplasty implant and graft
CPT/HCPCS: 82962; 83880; 87804; 97110-GP; 97116-GP; G0378; J0456; J0696; J1940; J1956; J2920; J2930; J7030; J7040; J7050; J7060; J7613; J7620; J7644; Q0092

== ENCOUNTER 2019-06-03 03:40 | Inpatient (IN) | payer OTHER ==
[~2019-06-03] VITALS: Ht 167.6 cm; Wt 73.5 kg
[~2019-06-03 03:40] MED LIST changes: +ASPIR 8181 MG PO; +ATHENOL325 MG PO; +CARVEDILOL ER40 MG PO; +CLONIDINE HYDR0.1 M1 PO; +COLCRYS0.6 M2 PO; +COZAAR25 M1 PO; +DEXTROSE 50% IV; +LANTI SQ; +LEVAQUIN500 M1 PO; +MITIGARE0.6 MG PO; +NASAL MIST126 ML; +NORCO1 TA2 PO; +PACERONE200 MG PO; +PLAVIX75 M1 PO; +PRE20 PO; +PREDNISONE10 MG PO; +PREDNISONE5 MG PO; +REN800 PO; +RENA-VITE RX1 TAB PO; +SENSIPAR30 M1 PO; +[UNRECOGNIZED DRUG - OTHER] IV
[2019-06-03 03:42] VITALS: Ht 167.6 cm; Wt 73.5 kg
[2019-06-03 04:25] LABS: BASOPHIL % 0.4 % (0-2); PLATELET COUNT 174 x10^3mcL (130-400); RED CELL DISTRIBUTION WIDTH 15.1 % (11.5-14.5)
[2019-06-03 05:16] LABS: CARBON DIOXIDE 26.6 mmol/L (21-32); POTASSIUM SERUM 5.5 mmol/L (3.5-5.1)
[2019-06-03 05:17] LABS: TOTAL PROTEIN, SERUM 6.2 g/dL (6.4-8.2)
[2019-06-03 05:18] LABS: ALBUMIN 2.8 g/dL (3.4-5.0); BILIRUBIN TOTAL 0.7 mg/dL (0.20-1.00); CALCIUM 7.8 mg/dL (8.5-10.1)
[2019-06-03] MEDS ORDERED: VITAMIN C100 M2 (05:30)
[2019-06-03] MEDS ORDERED: [UNRECOGNIZED DRUG - OTHER] PO (05:30)
[2019-06-03] MEDS ORDERED: D3-50001 TAB PO (05:30)
[2019-06-03 06:54] VITALS: BP 143/61
[2019-06-03 07:15] LABS: CHOLESTEROL/HDL RATIO 3.4; MAGNESIUM 2.5 mg/dL (1.8-2.4)
[2019-06-03 09:47] VITALS: BP 146/55
[2019-06-03 14:08] VITALS: BP 131/52
[2019-06-03 16:09] VITALS: BP 117/59
[2019-06-03 16:58] VITALS: BP 115/55
[2019-06-03 21:27] VITALS: BP 121/64
[2019-06-04 05:31] VITALS: BP 120/55
[2019-06-04 06:18] LABS: BASOPHIL % 0.1 % (0-2); PLATELET COUNT 155 x10^3mcL (130-400)
[2019-06-04 06:31] LABS: RED CELL DISTRIBUTION WIDTH 15.2 % (11.5-14.5)
[2019-06-04 06:55] LABS: CALCIUM 8.4 mg/dL (8.5-10.1); CARBON DIOXIDE 26.4 mmol/L (21-32); MAGNESIUM 2.2 mg/dL (1.8-2.4); PHOSPHOROUS 5.7 mg/dL (2.5-4.9); POTASSIUM SERUM 5.1 mmol/L (3.5-5.1)
[2019-06-04 06:58] LABS: CREATININE SERUM 8.7 mg/dL (0.7-1.3)
[2019-06-04 08:18] VITALS: BP 130/51
[2019-06-04 12:10] VITALS: BP 137/58
[2019-06-04 13:02] VITALS: BP 137/58
[2019-06-04] MEDS ORDERED: LEVAQUIN500 M1 PO ×2 (15:12→15:48)
[2019-06-04 16:36] VITALS: BP 140/56
== END 2019-06-04 17:20 | disposition home or self-care (01) | DRG 871 ==
LOC: ED 03:40 → DU 05:39
PROVIDERS: Emergency Medicine; ADMIT Internal Medicine
DX: A41.9 Sepsis, unspecified organism (principal); J18.9 Pneumonia, unspecified organism; J96.01 Acute respiratory failure with hypoxia; N18.6 End stage renal disease; I50.21 Acute systolic (congestive) heart failure; I13.2 Hypertensive heart and chronic kidney disease with heart failure and with stage 5 chronic kidney disease, or end stage renal disease; E44.1 Mild protein-calorie malnutrition; J44.1 Chronic obstructive pulmonary disease with (acute) exacerbation; E11.22 Type 2 diabetes mellitus with diabetic chronic kidney disease; E87.79 Other fluid overload; E11.65 Type 2 diabetes mellitus with hyperglycemia; I48.0 Paroxysmal atrial fibrillation; E87.5 Hyperkalemia; D63.8 Anemia in other chronic diseases classified elsewhere; Z99.2 Dependence on renal dialysis; Z95.0 Presence of cardiac pacemaker; Z99.81 Dependence on supplemental oxygen; Z79.52 Long term (current) use of systemic steroids; Z79.4 Long term (current) use of insulin; Z79.84 Long term (current) use of oral hypoglycemic drugs; Z87.891 Personal history of nicotine dependence; Z95.1 Presence of aortocoronary bypass graft; Z95.5 Presence of coronary angioplasty implant and graft; Z68.24 Body mass index [BMI] 24.0-24.9, adult
CPT/HCPCS: 82962; 83880; 87804; 97116-GP; G0378; J0456; J0696; J0885-EC; J1644; J1815; J1956; J2920; J2930; J3490; J7030; J7040; J7620; Q0092

== ENCOUNTER 2020-05-25 04:35 | Emergency (ER) | payer OTHER ==
[~2020-05-25 04:35] MED LIST changes: +D3-50001 TAB PO; +VITAMIN C100 M2; +[UNRECOGNIZED DRUG - OTHER] PO
[2020-05-25 05:20] VITALS: Ht 167.6 cm
== END 2020-05-25 10:25 ==
LOC: ED 04:35
DX: I46.9 Cardiac arrest, cause unspecified (principal); J44.9 Chronic obstructive pulmonary disease, unspecified; I13.2 Hypertensive heart and chronic kidney disease with heart failure and with stage 5 chronic kidney disease, or end stage renal disease; N18.6 End stage renal disease; Z99.2 Dependence on renal dialysis; Z88.0 Allergy status to penicillin; Z88.2 Allergy status to sulfonamides; Z88.5 Allergy status to narcotic agent